=== PATIENT | female | born 1955 | race Caucasian/White ===

== ENCOUNTER → 2016-05-14 | Outpatient (CLI) | payer BC ==
[~2016-05-14] MED LIST: ASPI-611 PO; ASPI-861 PO; ESOM40CA PO; FERR324T4 PO; FLUO-88 PO; SIMV40TA82 PO; [UNRECOGNIZED DRUG - CODE] PO
== END ==
LOC: WC.BC 08:56
DX: Z12.31 Encounter for screening mammogram for malignant neoplasm of breast (principal)
CPT/HCPCS: 77063; G0202